=== PATIENT | male | born 1955 | race Hispanic/Latino ===

== ENCOUNTER 2019-07-03 08:56 | Day surgery (SDC) | payer OTHER, MEDICARE ==
[~2019-07-03] VITALS: Ht 167.6 cm; Wt 95.3 kg
[2019-07-03] VITALS (7 sets, daily range): BP systolic 106–151; BP diastolic 53–96
[~2019-07-03 08:56] MED LIST: LIDOCAINE HCL 1% 20 ML VIAL ONE; PROPOFOL 10 MG/ML 20ML VIAL IV ONE; SODIUM CHLORIDE 0.9% 1000ML 1,000 ML IV ONE
[2019-07-03] MEDS ORDERED: ALLO100T PO (11:09)
[2019-07-03] MEDS ORDERED: DOXA2TAB2 PO (11:09)
[2019-07-03] MEDS ORDERED: SERT25TA5 PO (11:09)
[2019-07-03] MEDS ORDERED: TORS10TA18 PO (11:09)
[2019-07-03] MEDS ORDERED: METO10TA3 PO (11:09)
[2019-07-03] MEDS ORDERED: ESOM40CA54 PO (11:09)
[2019-07-03] MEDS ORDERED: AMLO5TAB9 PO (11:09)
[2019-07-03] MEDS ORDERED: CARV25TA PO (11:09)
[2019-07-03] MEDS ORDERED: ROSU20TA31 PO (11:09)
[2019-07-03] MEDS ORDERED: PROPOFOL 10 MG/ML 20ML VIAL IV ONE (12:03)
== END 2019-07-03 13:05 | disposition home or self-care (01) ==
LOC: ENDO 08:56 → DAH 08:56 → ENDO 13:05
PROVIDERS: ATTEND Internal Medicine
DX: K63.5 Polyp of colon (principal); K31.89 Other diseases of stomach and duodenum; D50.9 Iron deficiency anemia, unspecified; E78.5 Hyperlipidemia, unspecified; E11.9 Type 2 diabetes mellitus without complications; F10.21 Alcohol dependence, in remission; I11.0 Hypertensive heart disease with heart failure; I50.9 Heart failure, unspecified; J44.9 Chronic obstructive pulmonary disease, unspecified; Z79.899 Other long term (current) drug therapy; Z86.73 Personal history of transient ischemic attack (TIA), and cerebral infarction without residual deficits; Z90.49 Acquired absence of other specified parts of digestive tract; Z80.0 Family history of malignant neoplasm of digestive organs; Z82.49 Family history of ischemic heart disease and other diseases of the circulatory system; Z83.3 Family history of diabetes mellitus; Z82.3 Family history of stroke
CPT/HCPCS: 43239; 45385; 82948 ×3; 88305; A4606; J2704 ×2; J7030